=== PATIENT | male | born 1950 | race Caucasian/White ===

== ENCOUNTER 2017-08-14 11:57 | Emergency (ER) | payer OTHER ==
[~2017-08-14] VITALS: Ht 193 cm; Wt 124.0 kg
[2017-08-14 11:58] VITALS: BP 154/92; PULSE 61; RESP 18; TEMP 98.3; O2SAT 100
[2017-08-14] MEDS ORDERED: LISI-519 PO (12:08)
[2017-08-14] MEDS ORDERED: LEVO100T5 PO (12:08)
[2017-08-14] MEDS ORDERED: ATOR80TA45 PO (12:08)
--- NOTE | 2017-08-14 12:58 | PD ---
HPI Chief Complaint: Back/ Neck Pain or Injury Time Seen by Provider: 12:31 Travel History International Travel<30 days: No Contact w/Intl Traveler<30days: No Traveled to known affect area: No History of Present Illness HPI 67-year-old male here for evaluation of right/mid back pain 1 week. Patient reports the pain has become increasingly more frequent and painful prompting his visit today. He describes the pain as a "charley horse". The pain is brought on by deep inspiration and twisting. The duration of pain last for several seconds and resolves. He denies chest pain, shortness of breath, or abdominal pain. He does not recall a specific injury. Pain is slightly improved with OTC Aleve. FOR[facility]LY [facility], [facility] Past Medical History Narrative Medical Significant for hypertension, dyslipidemia, hypothyroidism High Cholesterol: Yes Diabetes: No Hypertension: Yes Thyroid Disease: Yes Tetanus Vaccination: Unknown Past Surgical History Appendectomy: Yes Other Surgery: Yes (JAW SX) Social History Alcohol Use: Yes (SOC) Tobacco Use: No Substance Use: No Allergies-Medications (Allergen,Severity, Reaction): Coded Allergies: No Known Allergies (Verified Allergy, Unknown, 08/14/17) Reported Meds & Prescriptions Reported Meds & Active Scripts Active Reported Levothyroxine (Levothyroxine Sodium) 100 Mcg Tab 100 Mcg PO DAILY Atorvastatin (Atorvastatin Calcium) 80 Mg Tab 80 Mg PO HS Lisinopril 5 Mg Tab 5 Mg PO DAILY Review of Systems Except as stated in HPI: all other systems reviewed are Neg General / Constitutional: No: Fever Cardiovascular: No: Chest Pain or Discomfort Respiratory: No: Shortness of Breath Physical Exam Narrative GENERAL: Alert, well-appearing male sitting comfortably on the edge of the bed. No acute distress. SKIN: Focused skin assessment warm/dry. HEAD: Atraumatic. Normocephalic. EYES: Pupils equal and round. No scleral icterus. No injection or drainage. ENT: No nasal bleeding or discharge. Mucous membranes pink and moist. NECK: Trachea midline. No JVD. CARDIOVASCULAR: Regular rate and rhythm. No murmur appreciated. RESPIRATORY: No accessory muscle use. Clear to auscultation. Breath sounds equal bilaterally. GASTROINTESTINAL: Abdomen soft, non-tender, nondistended. MUSCULOSKELETAL: No obvious deformities. No clubbing. No cyanosis. No edema. BACK: No CVA tenderness. No rash. No point tenderness on palpation of the spine. Patient points to the right mid thoracic region as the location of the pain. The area is slightly elevated consistent with her spouse muscle spasm. NEUROLOGICAL: Awake and alert. No obvious cranial nerve deficits. Motor grossly within normal limits. Normal speech. PSYCHIATRIC: Appropriate mood and affect; insight and judgment normal. Data Data Last Documented VS Vital Signs Date Time Temp Pulse Resp B/P (MAP) Pulse Ox O2 Delivery O2 Flow Rate FiO2 08/14/17 11:58 98.3 61 18 154/92 (112) 100 Orders Orders Electrocardiogram (08/14/17 12:37) Chest, Single Ap (08/14/17 12:37) Spine, Thoracic-Ap/Lat/Sw(3vw) (08/14/17 ) Ketorolac Inj (Toradol Inj) (08/14/17 13:15) Orphenadrine Inj (Norflex Inj) (08/14/17 13:15) [facility] Medical Decision Making Medical Screen Exam Complete: Yes Emergency Medical Condition: Yes Differential Diagnosis Thoracic strain, thoracic spine fracture, ACS, AAA Narrative Course 67 old male here for evaluation of right mid back pain 1 week. He describes the pain as a muscle spasm. He denies chest pain or shortness of breath. On exam he has what appears to be right thoracic paraspinous muscle spasms. His EKG, chest x-ray, thoracic spine x-ray were all normal. Diagnostic findings discussed with patient. Diagnosis Primary Impression: Spasm of thoracic back muscle Referrals: Primary Care Physician Additional Instructions: Take the medications as prescribed. He may use heat to help reduce muscle spasms. Avoid heavy lifting or strenuous activity. Follow-up with her doctor for recheck. Return to emergency department if he developed new or worsening symptoms. Scripts Methocarbamol (Robaxin) 500 Mg Tab 500 MG PO TID for Muscle Spasm for 5 Days, TAB 0 Refills Prov: Jocelyne Wells 08/14/17 Ibuprofen (Ibuprofen) 800 Mg Tab 800 MG PO Q6HR Y for PAIN, #40 TAB 0 Refills Prov: Jocelyne Wells 08/14/17 Disposition: 01 DISCHARGE HOME Condition: Stable Jocelyne Wells Aug 14, 2017 12:58
--- NOTE | 2017-08-14 13:08 | RADRPT ---
EXAM DATE/TIME: 08/14/2017 12:49 [facility] COMPARISON: No previous studies available for comparison. INDICATIONS : Upper back pain between shoulder blades. MEDICAL HISTORY : None. SURGICAL HISTORY : None. ENCOUNTER: Initial ACUITY: 1 week PAIN SCORE: 10/10 LOCATION: Bilateral upper back FINDINGS: A single view of the chest demonstrates the lungs to be symmetrically aerated without evidence of mas s, infiltrate or effusion. The cardiomediastinal contours are unremarkable. Osseous structures are intact. CONCLUSION: No acute disease. Gavin Jules MD on August 14, 2017 at 13:06 Board Certified Radiologist. This report was verified electronically.
--- NOTE | 2017-08-14 13:09 | RADRPT ---
EXAM DATE/TIME: 08/14/2017 12:49 [facility] COMPARISON: No previous studies available for comparison. INDICATIONS : Upper back pain between shoulder blades, no known injury MEDICAL HISTORY : None. SURGICAL HISTORY : None. ENCOUNTER: Initial ACUITY: 1 week PAIN SCORE: 10/10 LOCATION: upper back FINDINGS: There is normal alignment of the thoracic vertebral bodies. Vertebral body height is maintained. No evidence of fracture or subluxation. Pedicles are intact at all levels. The paravertebral reflecti ons are not thickened. CONCLUSION: No acute disease. Camron Serrano Jr., MD on August 14, 2017 at 13:06 Board Certified Radiologist. This report was verified electronically.
[2017-08-14] MEDS ORDERED: ORPHENADRINE INJ 60 MG/2 ML AMP IM ONE (13:15)
[2017-08-14] MEDS ORDERED: KETOROLAC TROMETHAMINE 60 MG/2 ML (IM) VIAL IM ONE (13:15)
[2017-08-14] MEDS ORDERED: ROBA500T PO (13:32)
[2017-08-14] MEDS ORDERED: IBUP1TAB7 PO (13:32)
--- NOTE | 2017-08-15 09:16 | EKG ---
Date Performed: 08/14/2017 Time Performed: 12:45:25 PTAGE: 67 years EKG: Sinus rhythm MARKED LEFT AXIS DEVIATION ABNORMAL ECG NO PREVIOUS TRACING DOCTOR: Yoel Agrawal Interpretating Date/Time 08/15/2017 09:15:11
== END 2017-08-14 13:43 | disposition home or self-care (01) ==
LOC: PHEFT 11:57
DX: M62.830 Muscle spasm of back (principal); R94.31 Abnormal electrocardiogram [ECG] [EKG]
CPT/HCPCS: 71010; 72072; 93005; 96372; 99284; J1885; J2360

== ENCOUNTER 2017-11-04 14:47 | Emergency (ER) | payer OTHER ==
[~2017-11-04] VITALS: Ht 193 cm; Wt 120.0 kg
[~2017-11-04 14:47] MED LIST: ATOR80TA45 PO; IBUP1TAB7 PO; LEVO100T5 PO; LISI-519 PO; ROBA500T PO
[2017-11-04 14:50] VITALS: BP 167/83; PULSE 102; RESP 16; TEMP 98.3; O2SAT 96
[2017-11-04] MEDS ORDERED: INDO25CA PO ×2 (16:42→17:58)
[2017-11-04] MEDS ORDERED: KETOROLAC TROMETHAMINE 60 MG/2 ML (IM) VIAL IM ONE (17:30)
--- NOTE | 2017-11-04 17:57 | PD ---
HPI Chief Complaint: Musculoskeletal Complaint Time Seen by Provider: 17:10 Travel History International Travel<30 days: No Contact w/Intl Traveler<30days: No Traveled to known affect area: No History of Present Illness HPI Patient comes emergency department complaining of gout flare of the began 3 days ago and his left foot. Patient reports taking an old prescription of indomethacin last dose yesterday with no improvement of symptoms. Patient reports pain over first metacarpal phalangeal joint going into his arch. Patient denies any trauma, fevers, numbness or tingling, or IV drug use.. Reports feel similar to previous gout flares. PFSH Past Medical History High Cholesterol: Yes Diabetes: No Diminished Hearing: No Gout: Yes Hypertension: Yes Thyroid Disease: Yes Tetanus Vaccination: Unknown Past Surgical History Appendectomy: Yes Other Surgery: Yes (JAW SX) Social History Alcohol Use: Yes (SOC) Tobacco Use: No Substance Use: No Allergies-Medications (Allergen,Severity, Reaction): Coded Allergies: No Known Allergies (Verified Allergy, Unknown, 11/04/17) Reported Meds & Prescriptions Reported Meds & Active Scripts Active Indomethacin 25 Mg Cap 25 Mg PO TID PRN Take with food, milk, or antacids to decrease stomach adverse effects. Reported Indomethacin 25 Mg Cap Unknown Dose PO TID Take with food, milk, or antacids to decrease stomach adverse effects. Levothyroxine (Levothyroxine Sodium) 100 Mcg Tab 100 Mcg PO DAILY Atorvastatin (Atorvastatin Calcium) 80 Mg Tab 80 Mg PO HS Lisinopril 5 Mg Tab 5 Mg PO DAILY Review of Systems Except as stated in HPI: all other systems reviewed are Neg Physical Exam Narrative GENERAL: Well-developed, overly nourished, in no acute distress, and non-ill appearing. SKIN: Mild erythematous and tenderness over first metacarpal phalangeal joint left foot. No crepitus or induration. No streaking. HEAD: Atraumatic. Normocephalic. EYES: Pupils equal and round. EOMI. No scleral icterus. No injection or drainage. ENT: No nasal bleeding or discharge. Mucous membranes pink and moist. NECK: Trachea midline. Supple. No nuclear rigidity. CARDIOVASCULAR: Dorsal pulses 2+, intact, and equal bilaterally. Capillary refill less than 2 seconds. RESPIRATORY: No accessory muscle use. No respiratory distress. MUSCULOSKELETAL: No obvious deformities. No clubbing. No cyanosis. No edema. Full range of motion. NEUROLOGICAL: Awake and alert. No obvious cranial nerve deficits. Motor grossly within normal limits. Normal speech. PSYCHIATRIC: Appropriate mood and affect; insight and judgment normal. Data Data Last Documented VS Vital Signs Date Time Temp Pulse Resp B/P (MAP) Pulse Ox O2 Delivery O2 Flow Rate FiO2 11/04/17 14:50 98.3 102 16 167/83 (111) 96 Orders Orders Ketorolac Inj (Toradol Inj) (11/04/17 17:30) [facility] Medical Decision Making Medical Screen Exam Complete: Yes Emergency Medical Condition: Yes Differential Diagnosis Gout, pseudogout, arthritis, cellulitis Narrative Course The patient appears to have acute gouty arthritis involving the left foot. There is no evidence to suggest infectious, septic joint at this time. There was no significant erythema, heat, swelling or fluctuance. The patient has had no distal or local trauma, cuts or abrasions. There has been no fever. The patient has had similar episodes and has a history of gout. There is no trauma to suspect contusion, strain or fracture. There is no clinical evidence to suggest bursitis, tendonitis, osteoarthritis, Rheumatoid arthritis, or septic arthritis. The patient was placed on NSAID medication and the patient was instructed on ice packs as well. The patient was instructed on close follow-up with his primary care provider.. The patient agreed with plan. Patient in no obvious distress upon re-evaluation. Patient was asked if they wanted to speak to my attending, which the patient did not wish to do at this time. Any questions/concerns in reference to patient diagnosis/condition discussed and clarified prior to patient's discharge. Reinforced sheer importance of close follow up with patient's primary physician or primary care clinic. Instructed patient to return to ED immediately, if symptoms return/ worsen. Patient showed understanding of above instructions. Further instructions and recommendations were detailed in discharge paperwork. Patient ambulated without difficulty out of ED at discharge. Diagnosis Primary Impression: Gout Qualified Codes: M10.9 - Gout, unspecified Patient Instructions: General Instructions, Gout (ED) Additional Instructions: Follow-up with your primary care physician in 3-5 days for evaluation. Take all medication as prescribed. Apply ice to affected area 20 min/h as needed for pain. Return to the emergency department if symptoms get worse. Med/Other Pt SpecificInfo: Prescription(s) given Scripts Indomethacin (Indomethacin) 25 Mg Cap 25 MG PO TID Y for PAIN 1 TO 10 AND/OR AGITATION, #15 CAP 0 Refills Take with food, milk, or antacids to decrease stomach adverse effects. Prov: Jl Barahona MD 11/04/17 Disposition: 01 DISCHARGE HOME Condition: Stable Alexsander Albright Nov 04, 2017 17:57
== END 2017-11-04 18:19 | disposition home or self-care (01) ==
LOC: PHED 14:47 → PHEFT 18:19
DX: M10.9 Gout, unspecified (principal); I10 Essential (primary) hypertension; E78.00 Pure hypercholesterolemia, unspecified; Z79.899 Other long term (current) drug therapy
CPT/HCPCS: 96372; 99283; J1885